=== PATIENT | female | born 1990 | race Two or more races ===

== ENCOUNTER 2016-07-16 18:36 | Emergency (ER) | payer SELFPAY ==
[~2016-07-16] VITALS: Ht 142.2 cm; Wt 81.6 kg
[2016-07-16 18:54] VITALS: BP 135/94
[2016-07-16] MEDS ORDERED: HYDR-971 PO (20:04)
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
--- NOTE | 2016-07-17 08:21 | RAD ---
Right hand, 3 views, 07/16/2016: History: Hand injury, pain There is an acute fracture of the distal fifth metacarpal. The fracture is nondisplaced. There is slight radial and volar angulation of the distal fracture fragment. No other fracture or dislocation is identified. IMPRESSION: Boxer's type fracture of the distal fifth metacarpal.
== END 2016-07-16 20:14 | disposition home or self-care (01) ==
LOC: ER 18:36
DX: S62.336A Displaced fracture of neck of fifth metacarpal bone, right hand, initial encounter for closed fracture (principal); X58.XXXA Exposure to other specified factors, initial encounter; Y93.89 Activity, other specified; Y99.8 Other external cause status; Y92.89 Other specified places as the place of occurrence of the external cause
CPT/HCPCS: 29125; 73130; 99284-25

== ENCOUNTER 2016-07-23 17:46 | Emergency (ER) | payer SELFPAY ==
[~2016-07-23] VITALS: Ht 142.2 cm; Wt 68.0 kg
[~2016-07-23 17:46] MED LIST: HYDR-971 PO
[2016-07-23 18:17] VITALS: BP 127/81
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
== END 2016-07-23 19:32 | disposition home or self-care (01) ==
LOC: ER 17:46
DX: Z48.01 Encounter for change or removal of surgical wound dressing (principal); S62.396G Other fracture of fifth metacarpal bone, right hand, subsequent encounter for fracture with delayed healing; X58.XXXD Exposure to other specified factors, subsequent encounter; Y92.89 Other specified places as the place of occurrence of the external cause
CPT/HCPCS: 29125; 99283-25

== ENCOUNTER 2016-09-15 09:55 | Emergency (ER) | payer SELFPAY ==
[~2016-09-15] VITALS: Ht 142.2 cm; Wt 70.3 kg
--- NOTE | 2016-09-15 10:18 | PHYS DOC ---
Past Medical History Past Medical History: No Pertinent History Past Surgical History: Cholecystectomy Alcohol Use: None Drug Use: None Adult General Chief Complaint Chief Complaint: ABDOMINAL PAIN HPI HPI Patient is a 26 year old female presents to the emergency department with sudden onset of right lower pelvic pain. Patient states it started at 0500 this morning, cramping type feeling. Denies vaginal discharge, states she did not have a menstrual cycle this month although is irregular. Denies UTI symptoms. Had one episode of vomiting prior to arrival. Pain was 10/10 until she vomited and now 8/10. She did take tylenol for the pain with no relief. Denies fever, chills and diarrhea. Review of Systems Review of Systems Constitutional: Denies fever or chills [] Eyes: Denies change in visual acuity, redness, or eye pain [] HENT: Denies nasal congestion or sore throat [] Respiratory: Denies cough or shortness of breath [] Cardiovascular: No additional information not addressed in HPI [] GI: right lower abdominal pain/pelvic pain, nausea, vomiting, bloody stools or diarrhea [] : Denies dysuria or hematuria [] Musculoskeletal: Denies back pain or joint pain [] Integument: Denies rash or skin lesions [] Neurologic: Denies headache, focal weakness or sensory changes [] Endocrine: Denies polyuria or polydipsia [] Current Medications Current Medications Current Medications Medications (Trade) Dose Ordered Sig/[facility] Start Time Stop Time Status Last Admin Dose Admin Ibuprofen (Motrin) 800 mg 1X ONCE 09/15/16 10:30 09/15/16 10:32 DC 09/15/16 11:40 800 MG Allergies Allergies Allergies Coded Allergies Type Severity Reaction Last Updated Verified No Known Drug Allergies 07/16/16 No Physical Exam Physical Exam Constitutional: Well developed, well nourished, no acute distress, non-toxic appearance. [] HENT: Normocephalic, atraumatic, bilateral external ears normal, oropharynx moist, no oral exudates, nose normal. [] Eyes: PERRLA, EOMI, conjunctiva normal, no discharge. [] Neck: Normal range of motion, no tenderness, supple, no stridor. [] Cardiovascular:Heart rate regular rhythm, no murmur [] Lungs & Thorax: Bilateral breath sounds clear to auscultation [] Abdomen: Bowel sounds hypoactive, soft, right pelvic tenderness, no masses, no pulsatile masses. Negative McBurney sign, no rebound tenderness no guarding noted Skin: Warm, dry, no erythema, no rash. [] Back: No tenderness Extremities: No tenderness, no cyanosis, no clubbing, ROM intact, no edema. [] Neurologic: Alert and oriented X 3, normal motor function, normal sensory function, no focal deficits noted. [] Psychologic: Affect normal, judgement normal, mood normal. [] Current Patient Data Vital Signs Vital Signs Date Time Temp Pulse Resp B/P (MAP) Pulse Ox O2 Delivery O2 Flow Rate FiO2 09/15/16 10:23 98.7 98 18 121/79 (93) 98 Room Air 98.7 Lab Values Laboratory Tests Test 09/15/16 10:01 Urine Collection Type Void Urine Color Ximena Urine Clarity Cloudy Urine pH 5.5 Urine Specific Wheeler >=1.030 Urine Protein 30 mg/dL (NEG-TRACE) Urine Glucose (UA) Negative mg/dL (NEG) Urine Ketones (Stick) 15 mg/dL (NEG) Urine Blood Large (NEG) Urine Nitrite Negative (NEG) Urine Bilirubin Negative (NEG) Urine Urobilinogen Dipstick 1.0 mg/dL (0.2 mg/dL) Urine Leukocyte Esterase Negative (NEG) Urine RBC 20-40 /HPF (0-2) Urine WBC 1-4 /HPF (0-4) Urine Squamous Epithelial Cells Many /LPF Urine Bacteria Few /HPF (0-FEW) Urine Mucus Mod /LPF EKG EKG [] Radiology/Procedures Radiology/Procedures [][facility] [address], [place] [id number] IMAGING REPORT Signed PATIENT: YOLANDA GAMINO ACCOUNT: [id number] : 1990 LOCATION: ER AGE: 26 SEX: F EXAM STATUS: REG ER ORD. PHYSICIAN: USHA VILLATORO APRN REASON: right lower pelvic pain PROCEDURE: PELVIS W/TV EXAM: Pelvic sonogram. HISTORY: Irregular menses. Right lower quadrant pain. TECHNIQUE: Transabdominal and transvaginal sonographic imaging of the pelvis was performed. COMPARISON: None. FINDINGS: The uterus measures 7.9 x 4.2 x 3.9 cm. The individual stripe measures 5.4 mm in thickness. The right ovary measures 3.6 x 2.3 x 2.4 cm. The left ovary measures 3.3 x 2.0 x 1.8 cm. There are multiple bilateral ovarian follicles. There is normal blood flow within both ovaries. There is no pelvic free fluid. There are nabothian cysts within the cervix. IMPRESSION: 1. Nabothian cysts within the cervix. 2. Otherwise, unremarkable pelvic sonogram. DICTATED and SIGNED BY: ITALIA SORENSON MD DATE: 09/15/16 4026 CC: USHA VILLATORO APRN; NO PCP; NON,STAFF ~ Course & Med Decision Making Course & Med Decision Making Pertinent Labs and Imaging studies reviewed. (See chart for details) Urine was positive for blood however was negative for leukocyte Estrace. Patient 's ultrasound of the pelvis and transvaginal showed Nabothian cysts within the cervix. Patient states that this cramping type pain is similar to when she was having contractions when she was a . We'll recommend for patient to be discharged home on Keflex as there was blood in the urine for possible early in her tract infection. We'll have patient take ibuprofen for pain and discomfort. She'll be provided with signs and symptoms to return back to the emergency department such as fever, chills or any nausea or vomiting that continues. Patient will also be instructed if she has pain that stays in the right lower quadrant area to return back to the emergency department. Patient will be discharged home in stable condition vital signs within the emergency department was within normal limits. [] Dragon Disclaimer Dragon Disclaimer This electronic medical record was generated, in whole or in part, using a voice recognition dictation system. Departure Departure Impression: Primary Impression: Abdominal pain Disposition: HOME, SELF-CARE Condition: STABLE Referrals: NO PCP (PCP) Patient Instructions: Abdominal Pain Additional Instructions: You have been evaluated for right lower pelvic pain and flank pain. Your urine showed blood in the urine although no leukocyte Estrace which is identifying a urinary tract infection. However I we'll place her on Keflex to help with early urinary tract infection. Ibuprofen for pain and discomfort. Warm moist packs may also help with the discomfort of the cramping. Return back to the emergency department if he should develop any fever, chills or any further nausea or vomiting. Return back if the pain comes sharp in nature and continues in the right lower quadrant area of your abdomen. Follow-up to primary care physician in next 3-5 days. Scripts Cephalexin (KEFLEX) 500 Mg Capsule 1 CAP PO BID, #20 CAP Prov: USHA VILLATORO APRN 09/15/16 USHA VILLATORO APRN September 15, 2016 10:17
[2016-09-15 10:27] LABS: BILIRUBIN,URINE NEGATIVE (NEG); GLUCOSE,URINE NEGATIVE (NEG); NITRITE,URINE NEGATIVE (NEG); PH,URINE 5.5; PROTEIN,URINE 30 mg/dL (NEG-TRACE)
[2016-09-15] MEDS ORDERED: IBUPROFEN 800 MG TABLET. PO ONE (10:30)
[2016-09-15 10:42] LABS: BACTERIA,URINE FEW /HPF (0-FEW); RBC,URINE 20-40 /HPF (0-2); SQUAMOUS EPITHELIAL CELL,UR MANY /LPF
--- NOTE | 2016-09-15 11:38 | RAD ---
EXAM: Pelvic sonogram. HISTORY: Irregular menses. Right lower quadrant pain. TECHNIQUE: Transabdominal and transvaginal sonographic imaging of the pelvis was performed. COMPARISON: None. FINDINGS: The uterus measures 7.9 x 4.2 x 3.9 cm. The individual stripe measures 5.4 mm in thickness. The right ovary measures 3.6 x 2.3 x 2.4 cm. The left ovary measures 3.3 x 2.0 x 1.8 cm. There are multiple bilateral ovarian follicles. There is normal blood flow within both ovaries. There is no pelvic free fluid. There are nabothian cysts within the cervix. IMPRESSION: 1. Nabothian cysts within the cervix. 2. Otherwise, unremarkable pelvic sonogram.
[2016-09-15] MEDS ORDERED: CEPH-264 PO (12:02)
[2016-09-15 12:10] VITALS: BP 114/72
== END 2016-09-15 12:18 | disposition home or self-care (01) ==
LOC: ER 09:55
DX: R10.31 Right lower quadrant pain (principal); Z90.49 Acquired absence of other specified parts of digestive tract
CPT/HCPCS: 76830; 76856; 81001; 81025; 84703; 99285-25